=== PATIENT | male | born 1970 | race Caucasian/White ===

== ENCOUNTER 2021-12-13 07:34 | Outpatient (CLI) | payer OTHER, SELFPAY ==
--- NOTE | 2021-12-26 14:10 | WPDSLEEPSTUD ---
Sleep Study Date of Study: 12/13/21 Ordering Provider: Allyssa Mann DO Interpreting Physician: Annika Recio MD Sleep Study Type: CPAP Titration Height: 1.83 m Weight: 117.934 kg Body Mass Index: 35.2 Neck Circumference (inches): 22 [place]: 6 Reason for Sleep Study 10/19/2020 Home sleep test showing severe obstructive sleep apnea with an apnea-hypopnea index of 31.3. He did not tolerate auto PAP. He is here for a CPAP titration. Sleep History Ion Mortensen is a 51 year old man with severe obstructive sleep apnea syndrome documented on a home sleep test ordered through [facility] in [facility], on October 19, 2020, AHI was 31.3. He tried auto PAP which did not help him. His sleep is not restorative. He occasionally awakens from sleep feeling short of breath. He frequently awakens at night with heartburn, belching or coughing. He constantly snores loudly enough that others complain about it. He does not have trouble sleeping with a cold. He occasionally wakes up gasping for breath during the night. He frequently has breathing problems at night observed by others and he sweats excessively at night. He occasionally notices his heart pounding or beating irregularly at night. He does not fall asleep during the day, does not fall asleep involuntarily and does not fall asleep while driving. He does not have loss of muscle tone with strong emotion. He frequently has daytime difficulties due to his excessive sleepiness. He does not feel paralyzed on waking or falling asleep. He frequently has vivid dreamlike scenes on wakening or falling asleep. He does not feel afraid to go to sleep. He does not have nightmares. He occasionally remembers his dreams. He constantly has racing thoughts. He rarely feels sad or depressed. He occasionally feels anxious. He frequently has muscular tension. He rarely notices parts of his body jerking. He does not kick at night. He frequently has crawling aching feelings in his legs. He frequently has leg pain during the night. He does not have morning jaw pain. He does not grind his teeth during sleep. He rarely is bothered by pain during the day. He occasionally is awakened by pain at night. He frequently wakes up feeling stiff the morning. He occasionally wakes up with sore achy muscles. He frequently wakes up with pain in the neck and spine. He has fatigue, concentration difficulties and insomnia. He reports that his blood counts have been high. Normal bedtime is 10:00 p.m. sometimes taking up to an hour to fall asleep. He typically wakes up 10 times during the night for unclear reasons. He will try to go back to sleep. Sometimes he is able to return to sleep within a few minutes and sometimes it may take an hour. He wakes the morning at 6:00 a.m.. On the weekends, his schedule is bedtime and 11 and wake-up time at 7:00 a.m.. He estimates getting 4 hours of sleep normally. He does not take naps in the day. A short nap is not refreshing. He is usually drowsy in the morning for 3 hours or longer. Habits: Caffeine 1 beverage a day. Drinks alcohol in social settings. No recreational drugs. [facility] Past Medical History Medical History (Updated 12/26/21 @ 14:16 by Annika Recio MD) Allergies Chronic cough Chronic pain syndrome Essential (primary) hypertension GERD (gastroesophageal reflux disease) History of traumatic injury to musculoskeletal system QUYEN (obstructive sleep apnea) Surgical History Surgical History H/O hernia repair H/O rotator cuff surgery Right Family History Family History Mother Patient's mother is in good health Social History Social History Smoking status: Never smoker Alcohol intake: current Drinks per week: 3 Substance use: never Substance use type: does not use
[2021-12-26 14:47] VITALS: BMI 35.2
== END 2021-12-14 06:23 | disposition home or self-care (01) ==
LOC: ANHCSM 07:35
PROVIDERS: PCP Family Medicine; Visit Provider Family Medicine
DX: G47.33 Obstructive sleep apnea (adult) (pediatric) (principal)
CPT/HCPCS: 95811